=== PATIENT | female | born 1935 | race Caucasian/White ===

== ENCOUNTER → 2017-03-24 | Outpatient (CLI) | payer MEDICARE ==
[2015-10-28 11:00] VITALS: BP 113/56
[~2017-03-24] MED LIST: AMLO5TAB2 PO; ASPI81TA50 PO; CEFP200T PO; CHOL500016 PO; CYCL1DRO EACHEYE; HYDR12.53 PO; IPRA3AMP NEB; LEVO750T31 PO; METO50TA2 PO; PANT40TA3 PO; POLY17PO5 PO; PRESSER VISION
--- NOTE | 2017-03-24 13:08 | RAD ---
Exam performed: Ultrasound evaluation of the left neck. History: Palpable lump. Date of service: 03/24/17. Comparison: None available Discussion: Real-time grayscale imaging of the neck was performed in the area of palpable concern. There is a 4.9 x 5.0 x 3.9 mm lymph node in the neck corresponding to the area of concern. There are 2 additional morphologically normal lymph node measuring 5.9 x 4.5 x 2.3 mm and 5.1 x 3.4 mm in the superior submandibular region. Corresponding area of the right neck was also scanned which demonstrated a view tiny subcentimeter lymph nodes. Impression: Area of palpable concern in the left neck corresponds to normal-appearing lymph nodes. These may be followed up clinically
== END | disposition home or self-care (01) ==
LOC: US 10:27
PROVIDERS: ATTEND Family Medicine
DX: R22.1 Localized swelling, mass and lump, neck (principal)
CPT/HCPCS: 76536

== ENCOUNTER → 2017-04-27 | Outpatient (CLI) | payer MEDICARE ==
[2015-10-28 11:00] VITALS: BP 113/56
--- NOTE | 2017-04-27 12:38 | RAD ---
DATE: April 27, 2017 EXAM: DIGITAL SCREEN BILAT W/CAD HISTORY: Routine screening. COMPARISON: Prior studies from March 20, March 19, 2015 and February 19, 2014. TECHNIQUE: 2D digital CC and MLO views of each breast were obtained. This study was interpreted with the benefit of Computerized Aided Detection (CAD). FINDINGS: The breast parenchyma demonstrates scattered fibroglandular densities, category B. There is no worrisome mass or area of architectural distortion. There are benign calcifications. There are no suspicious groupings of microcalcifications. IMPRESSION: Stable mammogram with benign findings BI-RADS CATEGORY: 2 BENIGN FINDING RECOMMENDED FOLLOW-UP: 12M 12 MONTH FOLLOW-UP PQRS compliance statement: Patient information was entered into a reminder system with a target due date for the next mammogram. Mammography is a sensitive method for finding small breast cancers, but it does not detect them all and is not a substitute for careful clinical examination. A negative mammogram does not negate a clinically suspicious finding and should not result in delay in biopsying a clinically suspicious abnormality. "Our facility is accredited by the [employer] Mammography Program."
== END | disposition home or self-care (01) ==
LOC: MAMMO 11:18
PROVIDERS: ATTEND Family Medicine
DX: Z12.31 Encounter for screening mammogram for malignant neoplasm of breast (principal); Z72.89 Other problems related to lifestyle
CPT/HCPCS: G0202; 77067

== ENCOUNTER → 2017-08-14 | Outpatient (CLI) | payer MEDICARE ==
[2015-10-28 11:00] VITALS: BP 113/56
[~2017-08-14] MED LIST changes: -METO50TA2 PO; +METO50TA6 PO
--- NOTE | 2017-08-14 13:50 | RAD ---
Chest, 2 views, 08/14/2017: History: Dyspnea on exertion Comparison is made to a study from 10/25/2015. The heart is within normal limits in size. There is calcific plaquing of aorta. There is a moderate-sized retrocardiac mass compatible with a hiatal hernia. The pulmonary vascularity is normal. No pulmonary infiltrate is seen. There is no evidence of pleural fluid. IMPRESSION: 1. Moderate sized hiatal hernia. 2. No acute cardiopulmonary abnormality is detected.
[2017-08-14 14:11] LABS: BASO # 0.1 x10^3/uL (0.0-0.2); BASO % 1 % (0-3); EOS # 0.1 x10^3/uL (0.0-0.7); EOS % 2 % (0-3); HEMOGLOBIN 11.6 g/dL (12.0-15.5); LYMPH # 2.6 x10^3/uL (1.0-4.8); LYMPH % 30 % (24-48); MEAN CORPUSCULAR HEMOGLOBIN 28 pg (25-35); MEAN CORPUSCULAR HGB CONC 33 g/dL (31-37); MEAN CORPUSCULAR VOLUME 85 fL (79-100); MONO # 0.8 x10^3/uL (0.0-1.1); MONO % 9 % (0-9); NEUT # 5.2 x10^3uL (1.8-7.7); NEUT % 59 % (31-73); PLATELET COUNT 412 x10^3/uL (140-400); RED BLOOD COUNT 4.11 x10^6/uL (3.50-5.40); RED CELL DISTRIBUTION WIDTH 15.9 % (11.5-14.5); WHITE BLOOD COUNT 8.8 x10^3/uL (4.0-11.0)
[2017-08-14 14:14] LABS: ALBUMIN/GLOBULIN RATIO 1.3 (1.0-1.7); CALCIUM 9.2 mg/dL (8.5-10.1); CREATININE 0.9 mg/dL (0.6-1.0); GFR 59.7; POTASSIUM 3.3 mmol/L (3.5-5.1); TOTAL BILIRUBIN 0.6 mg/dL (0.2-1.0); TOTAL PROTEIN 7.1 g/dL (6.4-8.2)
== END | disposition home or self-care (01) ==
LOC: DXRAD 13:23
PROVIDERS: ATTEND Internal Medicine Cardiovascular Disease
DX: K44.9 Diaphragmatic hernia without obstruction or gangrene (principal); R06.09 Other forms of dyspnea
CPT/HCPCS: 36415; 71046; 80053; 85025

== ENCOUNTER → 2018-03-16 | Outpatient (CLI) | payer MEDICARE ==
[2015-10-28 11:00] VITALS: BP 113/56
[~2018-03-16] MED LIST changes: -AMLO5TAB2 PO; +AMLO5TAB7 PO; -IPRA3AMP NEB; +IPRA3AMP29 NEB
== END | disposition home or self-care (01) ==
LOC: SURG 12:28
PROVIDERS: ATTEND Anesthesiology
DX: M54.5 Low back pain (principal)
CPT/HCPCS: 99204

== ENCOUNTER → 2018-10-11 | Outpatient (CLI) | payer MEDICARE ==
[2015-10-28 11:00] VITALS: BP 113/56
[~2018-10-11] MED LIST changes: +AMLO5TAB10 PO; -AMLO5TAB7 PO; -HYDR12.53 PO; +HYDR12.572 PO; +IOHEXOL 240 MG/ML 50ML VIAL. PO ONE; +IOHEXOL 300 MG/ML 75 ML VIAL. IV ONE
--- NOTE | 2018-10-11 13:41 | RAD ---
CT ABD PELV W/ORAL IV CONTRAST Indication: Abnormal weight loss, anemia Technique: Postcontrast CT imaging was performed of the abdomen pelvis, multiplanar reconstruction images submitted. Oral contrast was also given. One or more of the following individualized dose reduction techniques were utilized for this examination: 1. Automated exposure control 2. Adjustment of the mA and/or kV according to patient size 3. Use of iterative reconstruction technique. Comparison: October 26, 2015 Findings: There is no pleural fluid at the visualized lung bases. There are fat-containing Bochdalek hernias bilaterally as seen previously. There is somewhat larger size of moderate to large hiatal hernia, nonspecific wall thickening of visualized involved segment which includes about half of the stomach. 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 No new focal abnormality is identified of the liver. There is again hypodense lesion of the right lobe of the liver about 2 cm transverse by 1.3 cm AP by 1.2 cm CC, density measurements more cystlike as measured on coronal images, size fairly similar. Gallbladder is present without obvious intraluminal abnormality by CT. There is no adrenal nodularity. Both kidneys enhance, no hydronephrosis. There is again small hypodense lesion of the inferior, medial right kidney about 0.9 cm versus previously about 0.7 cm, internal density measurements more cystlike about 13 Hounsfield units. There are some scattered atherosclerotic calcification of the abdominal aorta. Bowel is not significantly dilated. There is no free fluid or free air. There is some variable retained stool greater of the right colon. Exam does not accurately evaluate for colon mass. Normal appendix is difficult to confidently visualize if still present. There is sigmoid diverticulosis. There is multilevel lumbar facet degenerative change, grade 1 anterior spondylolisthesis at what is considered L4-L5. There is suspected fairly severe spinal stenosis at L4-5. There is degree of bilateral L4-5 neural foramina compromise. No significantly enlarged or necrotic nodes are identified. IMPRESSION: 1. There is moderate to large hiatal hernia containing about half the stomach, nonspecific wall thickening involved segment although may be due to incomplete distention and peristalsis. 2. There is similar hypodense lesion of the right lobe liver more likely cyst, also likely small cyst of the inferior right kidney. 3. There is mild sigmoid diverticulosis. There is retained stool greater of the right colon. 4. There is suspected fairly severe spinal stenosis at L4-5, grade 1 anterior spondylolisthesis at this level due to facet degenerative change Electronically signed by: Dagoberto Sequeira MD (10/11/2018 1:38 PM) [id number]
== END | disposition home or self-care (01) ==
LOC: CT 08:47
PROVIDERS: ATTEND Family Medicine
DX: K57.30 Diverticulosis of large intestine without perforation or abscess without bleeding (principal); K44.9 Diaphragmatic hernia without obstruction or gangrene; M48.061 Spinal stenosis, lumbar region without neurogenic claudication; M43.16 Spondylolisthesis, lumbar region; M47.816 Spondylosis without myelopathy or radiculopathy, lumbar region; I70.0 Atherosclerosis of aorta; R63.4 Abnormal weight loss
CPT/HCPCS: 74177; Q9966; Q9967

== ENCOUNTER 2019-12-07 11:20 | Emergency (ER) | payer MEDICARE ==
[~2019-12-07] VITALS: Ht 154.9 cm; Wt 52.0 kg
[~2019-12-07 11:20] MED LIST changes: -IOHEXOL 240 MG/ML 50ML VIAL. PO ONE; -IOHEXOL 300 MG/ML 75 ML VIAL. IV ONE
--- NOTE | 2019-12-07 11:47 | PHYS DOC ---
Past History Past Medical History: Hypertension Past Surgical History: No Surgical History Smoking: Non-smoker Alcohol Use: None Drug Use: None General Adult EDM: Chief Complaint: HIP PAIN HPI: HPI: 84-year-old female presents via EMS with report of right hip pain status post mechanical trip and fall while patient was out gardening. Patient denies lightheadedness or dizziness. Denies chest pain. Denies head injury or neck pain. Denies loss of consciousness. Review of Systems: Review of Systems: Constitutional: Denies fever or chills Eyes: Denies redness or eye pain HENT: Denies nasal congestion or sore throat Respiratory: Denies cough or shortness of breath Cardiovascular: Denies chest pain or palpitations GI: Denies abdominal pain, nausea, or vomiting : Denies dysuria; reports urinary frequency Musculoskeletal: Denies back pain; reports right hip pain Integument: Denies rash or skin lesions Neurologic: Denies headache, focal weakness or sensory changes Complete systems were reviewed and found to be within normal limits, except as documented in this note. Current Medications: Current Meds: Current Medications Medications (Trade) Dose Ordered Sig/Dayna Start Time Stop Time Status Last Admin Dose Admin Fentanyl Citrate (Fentanyl 2ml Vial) 25 mcg 1X ONCE 12/07/19 11:45 12/07/19 11:46 Allergies: Allergies: Allergies Coded Allergies Type Severity Reaction Last Updated Verified Penicillins Allergy Intermediate 10/25/15 Yes Sulfa (Sulfonamide Antibiotics) Allergy Intermediate 10/25/15 Yes atropine Allergy Intermediate 10/25/15 Yes Physical Exam: PE: Constitutional: Well developed, well nourished, no acute distress, non-toxic appearance HENT: Normocephalic, atraumatic, oropharynx moist Eyes: PERRL, EOMI, conjunctiva normal, no discharge Neck: Normal range of motion, no midline tenderness, supple Cardiovascular: Heart rate normal, regular rhythm Lungs & Thorax: Bilateral breath sounds clear to auscultation, no wheezing Abdomen: Soft, no tenderness; pelvis stable and nontender Skin: Warm, dry, no erythema, no rash Back: No tenderness, no CVA tenderness Extremities: Right femoral head tenderness on any ROM, no edema, right DP and PT +2 Neurologic: Alert and oriented X 3, normal motor function, normal sensory function, no focal deficits noted Psychologic: Affect normal, judgment normal Current Patient Data: Vital Signs: Vital Signs Date Time Temp Pulse Resp B/P (MAP) Pulse Ox O2 Delivery O2 Flow Rate FiO2 12/07/19 11:32 98.1 96 18 160/89 (112) 93 Room Air EKG: EKG: @1221 Sinus tachycardia at 105bpm, NO ST elevation, QRS 134ms, QT/QTc 360/480ms Radiology/Procedures: Radiology/Procedures: PROCEDURE: HIP RIGHT 2V WITH PELVIS AP pelvis to include AP and lateral right hip radiographs 12/07/2019 CLINICAL HISTORY: Fall with injury to the right hip. An AP digital radiograph of the pelvis to include both hips was obtained. AP and lateral digital radiographs of the right hip were obtained. There is diffuse osteopenia of the visualized bony structures. No pelvic bone fracture is seen. An acute subcapital fracture of the right femoral neck is noted. The fracture fragments are slightly impacted. The left hip is intact. Mild to moderate degenerative changes are seen involving both hips. Mild to moderate degenerative changes are seen involving both SI joints. Moderate degenerative changes are seen involving the mid and lower lumbar spine. IMPRESSION: Acute subcapital fracture of the right femoral neck. Electronically signed by: Gaurang Norman MD (12/07/2019 12:17 PM) [id number] PROCEDURE: CHEST AP ONLY EXAM: CHEST AP ONLY 12/07/2019 11:56 AM CLINICAL INDICATION:Fall, pain. COMPARISON:Chest radiograph 08/14/2017 TECHNIQUE:AP view of the chest FINDINGS:The heart is normal in size. The lungs are hyperexpanded. No focal opacity, pleural effusion, or pneumothorax. Moderate hiatal hernia is unchanged. No acute osseous abnormality. IMPRESSION: 1. Hyperexpanded lungs suspicious for COPD. 2. Unchanged moderate hiatal hernia. Electronically signed by: Kalyn Parrish MD (12/07/2019 12:18 PM) [id number] Course & Med Decision Making: Course & Med Decision Making Pertinent Labs and Imaging studies reviewed. (See chart for details) Patient presents via EMS with report of mechanical slip and fall with subsequent right hip pain. Pain on any movement to right femoral head. Pelvis stable. Pain addressed. X-ray confirmed supcapital fracture. CXR stable. Labs obtained and posted to chart. EKG stable. Patient requiring transfer for admission to facility with orthopedic coverage. Discussed with Dr. Tomlinson (hospitalist) who is in agreement with admission. Discussed case with Dr. Holder (orthopedics) who is in agreement with consultation. Discussed findings and plan with patient, who acknowledges understanding and agreement. Notified Dr. Dougherty (PCP) regarding, who acknowledges understanding and agreement. Dragon Disclaimer: Dragon Disclaimer: This electronic medical record was generated, in whole or in part, using a voice recognition dictation system. Departure Departure: Impression: Primary Impression: Closed right hip fracture Qualified Codes: S72.001A - Fracture of unspecified part of neck of right femur, initial encounter for closed fracture Disposition: 05 TRANSFER OTHER ([facility]) Condition: STABLE Referrals: HANNAH DOUGHERTY MD (PCP) Justification of Admission: Justification of Admission: Justification of Admission Dx: N/A ABBIE ORLANDO DO Dec 07, 2019 11:47
--- NOTE | 2019-12-07 12:19 | RAD ---
AP pelvis to include AP and lateral right hip radiographs 12/07/2019 CLINICAL HISTORY: Fall with injury to the right hip. An AP digital radiograph of the pelvis to include both hips was obtained. AP and lateral digital radiographs of the right hip were obtained. There is diffuse osteopenia of the visualized bony structures. No pelvic bone fracture is seen. An acute subcapital fracture of the right femoral neck is noted. The fracture fragments are slightly impacted. The left hip is intact. Mild to moderate degenerative changes are seen involving both hips. Mild to moderate degenerative changes are seen involving both SI joints. Moderate degenerative changes are seen involving the mid and lower lumbar spine. IMPRESSION: Acute subcapital fracture of the right femoral neck. Electronically signed by: Gaurang Norman MD (12/07/2019 12:17 PM) [id number]
--- NOTE | 2019-12-07 12:20 | RAD ---
EXAM: CHEST AP ONLY 12/07/2019 11:56 AM CLINICAL INDICATION:Fall, pain. COMPARISON:Chest radiograph 08/14/2017 TECHNIQUE:AP view of the chest FINDINGS:The heart is normal in size. The lungs are hyperexpanded. No focal opacity, pleural effusion, or pneumothorax. Moderate hiatal hernia is unchanged. No acute osseous abnormality. IMPRESSION: 1. Hyperexpanded lungs suspicious for COPD. 2. Unchanged moderate hiatal hernia. Electronically signed by: Kalyn Parrish MD (12/07/2019 12:18 PM) [id number]
[2019-12-07 12:31] LABS: BASO % 0 % (0-3); EOS % 0 % (0-3); HEMATOCRIT 36.9 % (36.0-47.0); HEMOGLOBIN 12.5 g/dL (12.0-15.5); LYMPH % 13 % (24-48); MEAN CORPUSCULAR HEMOGLOBIN 33 pg (25-35); MEAN CORPUSCULAR HGB CONC 34 g/dL (31-37); MEAN CORPUSCULAR VOLUME 96 fL (79-100); MONO # 0.6 x10^3/uL (0.0-1.1); MONO % 8 % (0-9); NEUT # 6.2 x10^3uL (1.8-7.7); NEUT % 79 % (31-73); PLATELET COUNT 252 x10^3/uL (140-400); RED BLOOD COUNT 3.85 x10^6/uL (3.50-5.40); RED CELL DISTRIBUTION WIDTH 13.6 % (11.5-14.5); WHITE BLOOD COUNT 7.8 x10^3/uL (4.0-11.0)
[2019-12-07 12:40] LABS: ANION GAP 8 (6-14); BLOOD UREA NITROGEN 16 mg/dL (7-20); BUN/CREATININE RATIO 18 (6-20); CALCIUM 8.9 mg/dL (8.5-10.1); CARBON DIOXIDE 26 mmol/L (21-32); CHLORIDE 98 mmol/L (98-107); CREATININE 0.9 mg/dL (0.6-1.0); GFR 59.4; GLUCOSE 91 mg/dL (70-99); POTASSIUM 4.5 mmol/L (3.5-5.1); SODIUM 132 mmol/L (136-145)
[2019-12-07 13:10] LABS: BACTERIA,URINE 0 /HPF (0-FEW); BILIRUBIN,URINE NEG (NEG); CLARITY,URINE CLEAR; COLOR,URINE YELLOW; GLUCOSE,URINE NEG (NEG); NITRITE,URINE NEG (NEG); RBC,URINE 0 /HPF (0-2); UROBILINOGEN,URINE 0.2 mg/dL (0.2 mg/dL); WBC,URINE 0 /HPF (0-4)
[2019-12-07 13:11] LABS: SQUAMOUS EPITHELIAL CELL,UR OCC /LPF
[2019-12-07 13:12] LABS: ALBUMIN 3.5 g/dL (3.4-5.0); ALBUMIN/GLOBULIN RATIO 1.3 (1.0-1.7); ALK PHOS 62 U/L (46-116); ALT (SGPT) 19 U/L (14-59); AST (SGOT) 22 U/L (15-37); MAGNESIUM 1.9 mg/dL (1.8-2.4); TOTAL BILIRUBIN 0.9 mg/dL (0.2-1.0); TOTAL PROTEIN 6.2 g/dL (6.4-8.2)
[2019-12-07 14:18] VITALS: BP 154/78
--- NOTE | 2019-12-08 14:47 | EKG ---
[address] [address] Test Date: 2019-12-07 Test Time: 12:21:13 Pat Name: JOSR MICHAEL Department: Room: Gender: F Smog Technician: : [id number] Requested By: ABBIE ORLANDO Order Number: [id number] Reading MD: Measurements Intervals [place] Rate: 105 P: 0 HI: 170 QRS: -41 QRSD: 134 T: 116 QT: 360 QTc: 480 Interpretive Statements SINUS TACHYCARDIA ABNORMAL LEFT AXIS DEVIATION LEFT BUNDLE BRANCH BLOCK ABNORMAL ECG RI6.02 No previous ECG available for comparison
== END 2019-12-07 14:30 | disposition short-term general hospital (02) ==
LOC: ER 11:20
DX: S72.001A Fracture of unspecified part of neck of right femur, initial encounter for closed fracture (principal); J98.4 Other disorders of lung; I10 Essential (primary) hypertension; K44.9 Diaphragmatic hernia without obstruction or gangrene; Z88.0 Allergy status to penicillin; Z88.2 Allergy status to sulfonamides; Z88.8 Allergy status to other drugs, medicaments and biological substances; W01.0XXA Fall on same level from slipping, tripping and stumbling without subsequent striking against object, initial encounter; Y93.H2 Activity, gardening and landscaping; Y92.89 Other specified places as the place of occurrence of the external cause; Y99.8 Other external cause status; Z11.59 Encounter for screening for other viral diseases
CPT/HCPCS: 36415; 71045; 73502; 80053; 81001; 82553; 83735; 84484; 85025; 85610; 85730; 93005; 96374; 96376; 99285; C9803; J3010; U0003

== ENCOUNTER → 2020-01-13 | Outpatient (CLI) | payer MEDICARE ==
--- NOTE | 2020-01-13 12:39 | RAD ---
2 views the right femur without comparison for ORIF. FINDINGS: There has been medullary screw fixation of femoral neck fracture. Alignment is well maintained, though there is some persistent impaction of the femoral neck. Severe degenerative changes of the knee are noted in both the medial and lateral compartments, with more moderate changes of the patellofemoral joint compartment. No acute fractures are identified. No hardware abnormalities are identified. IMPRESSION: 1. Posttraumatic and postsurgical changes of the femur as described. Electronically signed by: Andres Cabrera MD (01/13/2020 12:37 PM) [id number]
== END | disposition home or self-care (01) ==
LOC: DXRAD 11:14
PROVIDERS: ATTEND Physician Assistant
DX: S72.001D Fracture of unspecified part of neck of right femur, subsequent encounter for closed fracture with routine healing (principal); M17.11 Unilateral primary osteoarthritis, right knee; X58.XXXD Exposure to other specified factors, subsequent encounter
CPT/HCPCS: 73552